=== PATIENT | male | born 1985 | race Caucasian/White ===

== ENCOUNTER 2017-08-23 09:30 | Emergency (ER) | payer BC ==
[2017-08-23 10:16] VITALS: BP 117/76
--- NOTE | 2017-08-23 10:29 | UC ---
Complaint Male HPI - HPI Summary HPI Summary: Patient was dating someone who he believe may have not been truthful. He has no symptoms or complaints - History of Current Complaint Chief Complaint: UCSTDScreening Stated Complaint: PERSONAL COMPLAINT Time Seen by Provider: 08/23/17 10:21 Hx Obtained From: Patient Severity Currently: None Pain Intensity: 0 Pain Scale Used: 0-10 Numeric Location: None - Allergies/Home Medications Allergies/Adverse Reactions: Allergies Allergy/AdvReac Type Severity Reaction Status Date / Time No Known Allergies Allergy Verified 08/23/17 10:13 PMH/Surg Hx/FS Hx/Imm Hx Previously Healthy: Yes - Surgical History Surgical History: None - Family History Known Family History: Positive: None - Social History Occupation: Employed Full-time Lives: Alone Alcohol Use: Occasionally Substance Use Type: None Smoking Status (MU): Never Smoked Tobacco - Immunization History Most Recent Tetanus Shot: less then 10 yrs Review of Systems Constitutional: Negative Skin: Negative Eyes: Negative ENT: Negative Respiratory: Negative Cardiovascular: Negative Gastrointestinal: Negative Genitourinary: Negative Motor: Negative Neurovascular: Negative Musculoskeletal: Negative Neurological: Negative Psychological: Negative Is Patient Immunocompromised?: No All Other Systems Reviewed And Are Negative: Yes Physical Exam Triage Information Reviewed: Yes Appearance: Well-Appearing, No Pain Distress, Well-Nourished Vital Signs: Initial Vital Signs Temp 98.0 F 08/23/17 10:13 Pulse 79 08/23/17 10:13 Resp 16 08/23/17 10:13 BP 117/76 08/23/17 10:13 Pulse Ox 99 08/23/17 10:13 Vital Signs Reviewed: Yes Eye Exam: Normal Eyes: Positive: Conjunctiva Clear ENT Exam: Normal ENT: Positive: Normal ENT inspection, Hearing grossly normal. Negative: Trismus , Muffled voice, Hoarse voice Dental Exam: Normal Neck exam: Normal Neck: Positive: Supple, Nontender, No Lymphadenopathy Respiratory Exam: Normal Respiratory: Positive: Chest non-tender, No respiratory distress, No accessory muscle use Cardiovascular Exam: Normal Cardiovascular: Positive: RRR, Brisk Capillary Refill Abdominal Exam: Normal Abdomen Description: Positive: Nontender, No Organomegaly, Soft Bowel Sounds: Positive: Present Musculoskeletal Exam: Normal Musculoskeletal: Positive: Strength Intact, ROM Intact, No Edema Neurological Exam: Normal Neurological: Positive: Alert, Muscle Tone Normal Psychological Exam: Normal Skin Exam: Normal Complaint Male Course/Dx - Course Course Of Treatment: will obtain lab studies, encouraged patient to practice sex safe, follow with pcp - Differential Dx/Diagnosis Provider Diagnoses: Sti exposure concern Discharge - Sign-Out/Discharge Documenting (check all that apply): Discharge/Admit/Transfer - Discharge Plan Condition: Stable Disposition: HOME Patient Education Materials: Safe Sex (ED) Referrals: Carlo Augustin MD [Primary Care Provider] - If Needed - Billing Disposition and Condition Condition: STABLE Disposition: HOME
[2017-08-24 16:05] LABS: Herpes Simplex Virus II IgG AB Positive (Negative)
--- NOTE | 2017-08-24 18:51 | ED ---
Course/Dx - Course Course Of Treatment: CALLED THE PATIENT'S PHONE, , TO DISCUSS LAB RESULTS; THE HSV I AND II ARE BOTH IgG POSITIVE. THE HE B SURFACE ANTIBODY IS POSITIVE INDICATING IMMUNITY. THERE WAS NO ANSWER, I LEFT A MESSAGE TO CALL US BACK Discharge - Sign-Out/Discharge Documenting (check all that apply): Discharge/Admit/Transfer - Discharge Plan Condition: Stable Disposition: HOME Patient Education Materials: Safe Sex (ED) Referrals: Carlo Augustin MD [Primary Care Provider] - If Needed - Billing Disposition and Condition Condition: STABLE Disposition: HOME
== END 2017-08-23 10:44 | disposition home or self-care (01) ==
LOC: UCEAST 09:30
DX: Z20.2 Contact with and (suspected) exposure to infections with a predominantly sexual mode of transmission (principal); B00.9 Herpesviral infection, unspecified
CPT/HCPCS: 36415; 86592; 86694; 86695; 86696; 86703; 86706; 86803; 87340; 87491; 87591; 87661; 99211; G0463

== ENCOUNTER 2018-11-03 15:48 | Emergency (ER) | payer BC ==
--- NOTE | 2018-11-03 15:49 | UC ---
General HPI - HPI Summary HPI Summary: 33 yo male presents requesting STI testing. He tells me that about 1 year ago he contracted herpes from a girlfriend who was unfaithful to him - seropositive. About 6 months ago he had his first outbreak that consisted of painful ulcers in the genital region. Since that time he has been sexually active with multiple women and is requesting urine STI testing and has questions about spreading herpes. He is also interested in having a medication on hand if he develops another outbreak. Currently he has no symptoms and denies fever, chills, abdominal pain, n/v, dysuria, penile discharge, testicular pain. - History of Current Complaint Stated Complaint: STI TESTING Time Seen by Provider: 11/03/18 15:49 Hx Obtained From: Patient Current Severity: None - Allergy/Home Medications Allergies/Adverse Reactions: Allergies Allergy/AdvReac Type Severity Reaction Status Date / Time No Known Allergies Allergy Verified 08/23/17 10:13 PMH/Surg Hx/FS Hx/Imm Hx - Additional Past Medical History Additional PMH: Genital herpes - Surgical History Surgical History: None - Family History Known Family History: Positive: None - Social History Occupation: Employed Full-time Lives: With Family Alcohol Use: Occasionally Substance Use Type: None Smoking Status (MU): Never Smoked Tobacco - Immunization History Most Recent Tetanus Shot: less then 10 yrs Review of Systems All Other Systems Reviewed And Are Negative: Yes Constitutional: Positive: Negative Skin: Positive: Negative Respiratory: Positive: Negative Cardiovascular: Positive: Negative Gastrointestinal: Positive: Negative Genitourinary: Positive: Negative Neurovascular: Positive: Negative Musculoskeletal: Positive: Negative Neurological: Positive: Negative Psychological: Positive: Negative Physical Exam - Summary Physical Exam Summary: GENERAL: NAD. WDWN. No pain distress. SKIN: No rashes, lesions, ulcers, or open wounds. NECK: Supple. Nontender. No lymphadenopathy. CHEST: No accessory muscle use. Breathing comfortably and in no distress. CV: Pulses intact. Cap refill <2seconds NEURO: Alert. PSYCH: Age appropriate behavior. Triage Information Reviewed: Yes Vital Signs Reviewed: Yes Course/Dx - Course Course Of Treatment: He declined genital exam today as he is asymptomatic. Educated about genital herpes. Given that he has only had 1 outbreak since devorah herpes 1 year ago, will treat episodically with valacyclovir 1gm daily for 5 days at first onset of outbreak. His urine was tested for GC/C today and will treat as needed. - Diagnoses Provider Diagnosis: Genital herpes Discharge - Sign-Out/Discharge Documenting (check all that apply): Patient Departure All imaging exams completed and their final reports reviewed: No Studies - Discharge Plan Condition: Stable Disposition: HOME Prescriptions: ValACYclovir (*) [Valtrex 1 GM(*)] 1 gm PO DAILY PRN #5 tab PRN Reason: Rash Patient Education Materials: Genital Herpes Simplex (ED) Referrals: Melvina Kan MD [Primary Care Provider] - Additional Instructions: If you develop a fever, shortness of breath, chest pain, new or worsening symptoms - please call your PCP or go to the ED immediately. - Billing Disposition and Condition Condition: STABLE Disposition: Home
[2018-11-03 16:10] VITALS: BP 128/89
[2018-11-07 23:56] LABS: Chlamydia trachomatis NAA Negative (Negative); Neisseria gonorrhoeae (GC) NAA Negative (Negative)
== END 2018-11-03 16:23 | disposition home or self-care (01) ==
LOC: UCEAST 15:48
DX: A60.00 Herpesviral infection of urogenital system, unspecified (principal)
CPT/HCPCS: 87491; 87591; 99212; G0463